=== PATIENT | male | born 1960 | race Caucasian/White ===

== ENCOUNTER → 2023-10-03 | Outpatient (CLI) | payer BC ==
--- NOTE | 2023-10-03 11:41 | XR ---
EXAMINATION TYPE: XR lumbosacral spine min 4V DATE OF EXAM: 10/03/2023 9:54 AM CLINICAL INDICATION:Male, 63 years old with history of M54.50 LOW BACK PAIN; [facility] COMPARISON: None TECHNIQUE: XR lumbosacral spine min 4V - Frontal, lateral , bilateral oblique and coned in L5-S1 late ral views of the spine. FINDINGS: No evidence of any acute osseous pathology. No evidence of loss of vertebral body height i s seen. There is grade 1 anterolisthesis of L4 on L5 alignment of the lumbar vertebral bodies. Mild s cattered disc space narrowing. Multilevel marginal osteophyte formation throughout the visualized spi ne. There is facet joint arthropathy throughout the spine. Scattered at least mild neural foraminal s tenosis. IMPRESSION: 1. No acute fracture. 2. Mild multilevel disc degeneration. 3. Grade 1 atrial listhesis of L4 on L5.
== END | disposition home or self-care (01) ==
LOC: RADXRMAIN 09:31
PROVIDERS: ATTEND Family Medicine
DX: M43.16 Spondylolisthesis, lumbar region (principal); M51.36 Other intervertebral disc degeneration, lumbar region; R20.0 Anesthesia of skin
CPT/HCPCS: 72110

== ENCOUNTER → 2024-10-12 | Outpatient (CLI) | payer BC ==
[2024-10-12 16:30] LABS: Vitamin B12 945.0 pg/mL (200.0-944.0)
== END | disposition home or self-care (01) ==
LOC: LABWHC1 12:39
PROVIDERS: ATTEND Psychiatry & Neurology Neurology
DX: E55.9 Vitamin D deficiency, unspecified (principal); E53.8 Deficiency of other specified B group vitamins
CPT/HCPCS: 36415; 82306; 82607